=== PATIENT | male | born 1985 | race Caucasian/White ===

== ENCOUNTER 2020-02-29 14:53 | Emergency (ER) | payer OTHER ==
[2020-02-29 14:58] VITALS: RESP 18
[2020-02-29] MEDS ORDERED: DIPH,PERTUS(ACELL)TETVAC-LF 0.5 ML VIAL IM ONE (15:20)
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
[2020-02-29] MEDS ORDERED: MORPHINE SULFATE 4 MG/ML SYRINGE IVP STA (16:16)
[2020-02-29 16:30] VITALS: BP 147/78; PULSE 76; TEMP 98.3
[2020-02-29] MEDS ORDERED: ACET/COD 300 MG/30 MG STARTER PACK 6 TAB BTL PO STA (16:32)
== END 2020-02-29 16:54 | disposition home or self-care (01) ==
LOC: EC 14:53
DX: S02.2XXA Fracture of nasal bones, initial encounter for closed fracture (principal); S00.83XA Contusion of other part of head, initial encounter; T74.11XA Adult physical abuse, confirmed, initial encounter; Z88.1 Allergy status to other antibiotic agents; Z88.2 Allergy status to sulfonamides; Z88.5 Allergy status to narcotic agent; Y92.89 Other specified places as the place of occurrence of the external cause; Y07.410 Brother, perpetrator of maltreatment and neglect; Y04.0XXA Assault by unarmed brawl or fight, initial encounter; Y93.89 Activity, other specified; Z23 Encounter for immunization
CPT/HCPCS: 99285 ×2; 90471 ×2; 96374 ×2; 72125; 70486; 70450; 90715; J2270

== ENCOUNTER 2020-03-01 05:18 | Emergency (ER) | payer OTHER ==
[2020-03-01 05:28] VITALS: BP 161/112; PULSE 73; RESP 18; TEMP 98.1
[2020-03-01] MEDS ORDERED: IBUPROFEN 400 MG TAB PO STA (05:44)
--- NOTE | 2020-03-01 06:32 | XR ---
EXAM: XR Right Knee, 3 Views CLINICAL HISTORY: ITS.REASON XR Reason: injury TECHNIQUE: Three views of the right knee. COMPARISON: No relevant prior studies available. FINDINGS: Bones/joints: Unremarkable. No acute fracture. No dislocation. Soft tissues: Unremarkable. IMPRESSION: Normal right knee x-rays.
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
== END 2020-03-01 07:15 | disposition home or self-care (01) ==
LOC: EC 05:18
DX: S83.91XA Sprain of unspecified site of right knee, initial encounter (principal); I10 Essential (primary) hypertension; Z88.1 Allergy status to other antibiotic agents; Z88.2 Allergy status to sulfonamides; Z88.5 Allergy status to narcotic agent; Y04.0XXA Assault by unarmed brawl or fight, initial encounter
CPT/HCPCS: 99283

== ENCOUNTER → 2021-10-18 | Outpatient (CLI) | payer OTHER ==
[2021-10-18 13:36] VITALS: BP 153/106; PULSE 86; TEMP 98.2; BMI 43.4
--- NOTE | 2021-10-18 15:39 | P.HPBAR ---
Bariatric H&P - History & Physicial H&P Date: 10/18/21 History & Physicial: Visit/CC: initial clinic visit Patient initial contact: Initial weight: Initial weight in pounds: Height: 6 ft 1 in Initial BMI: Last weight: Current weight: 149.232 kg Current weight in pounds: 329.00 Current BMI: 43.4 Campbell body weight (based on NIH guidelines): 83.461 kg Excess body weight loss: The patient is a 35 year-old M who presents for Bariatric Assessment. Patient presents to the bariatric clinic today to discuss weight loss surgery. Patient is interested in sleeve gastrectomy. He states he has been heavy since high school. His main complaints regarding his morbid obesity are worsening back pain. States he has been told he has thoracic spine deterioration. Patient also has right knee pain. Patient denies DVT or dysphagia in the past. No tobacco use. He does use marijuana occasionally. Both his mother and sister had gastric bypass. He prefers sleeping gastrectomy. Patient requires a 7 month supervised weight loss. BMI 43. Review of Systems The patient denies any acute changes in vision or hearing, no dysphagia or odynophagia, no chest pain or shortness of breath, no dysuria or hematuria, no headache, no runny nose, no rectal bleeding or melena, no unexplained weight loss Past Medical History Past Medical History: Hypertension History of Any Multi-Drug Resistant Organisms: None Reported Past Surgical History: No Surgical Hx Reported, Tonsillectomy Past Anesthesia/Blood Transfusion Reactions: No Reported Reaction Past Psychological History: PTSD Smoking Status: Never smoker Past Alcohol Use History: None Reported Past Drug Use History: Marijuana Surgical - Exam Vital Signs Temp Pulse BP 98.2 F 86 153/106 10/18/21 13:31 10/18/21 13:31 10/18/21 13:31 Physical exam: General: Well-developed, well-nourished HEENT: Normocephalic, sclerae nonicteric Abdomen: Nontender, nondistended Extremities: No edema Neuro: Alert and oriented Bariatric Assessment & Plan (1) Morbid obesity with BMI of 40.0-44.9, adult Narrative/Plan: 35-year-old male with morbid obesity. Surgical weight loss options and their associated risks and benefits reviewed in detail. Patient remains interested in sleeve gastrectomy. The risks of bleeding, infection, stenosis, stricture, leak, abscess, fistula formation, peritonitis, poor weight loss, reflux, vomiting, conversion to an open procedure, aborting sleeve gastrectomy, NM, PE, DVT, and were discussed. Patient believes he has completed most of his preoperative weight loss requirements. We'll tentatively plan upper endoscopy in the near future. Status: Acute Bariatric Checklist Checklist: Plan: Checklist: EGD: 1. Hiatal hernia: 2. H. Pylori: HgbA1c: Vitamin D: Smoking: Primary care physician referral: [facility] Psychiatry clearance: Cardiology clearance: Sleep study: Diet journal: VTE risk score: VTE risk level: Rehab needs at discharge:
[2021-10-18 22:32] LABS: HCT 46.1 % (39.6-50.0); MCH 28.7 pg (27.0-32.0); MCHC 32.5 g/dL (32.0-37.0); MCV 88.1 fL (80.0-97.0); Mean Platelet Volume 8.6 fL (9.5-12.2); NRBC Per 100 WBC 0 /100 WBCS (0.0-0.0); Platelet Count 329 X 10*3/uL (140-440); RBC 5.23 X 10*6/uL (4.40-5.60); RDW 12.5 % (11.5-14.5); WBC 7.56 X 10*3/uL (4.50-10.00)
[2021-10-18 22:42] LABS: Albumin 4.6 g/dL (3.8-4.9); Albumin/Globulin Ratio 1.83 (1.60-3.17); Anion Gap 11.1 mmol/L (10.00-18.00); BUN/Creat Ratio 19.83 Ratio (12.00-20.00); Blood Urea Nitrogen 16.8 mg/dL (9.0-27.0); Calcium 9.5 mg/dL (8.7-10.3); Carbon Dioxide 25.5 mmol/L (20.0-27.5); Globulin 2.5 g/dL (1.6-3.3); Non-African American GFR(CKD) 113.9 (60.0-200.0); Potassium 4.3 mmol/L (3.5-5.5); Total Bilirubin 0.2 mg/dL (0.30-1.20); Total Protein 7.1 g/dL (6.2-8.2)
== END ==
LOC: BARWHC3 13:13
PROVIDERS: ATTEND Surgery
DX: E66.01 Morbid (severe) obesity due to excess calories (principal); I10 Essential (primary) hypertension; F43.10 Post-traumatic stress disorder, unspecified; Z71.51 Drug abuse counseling and surveillance of drug abuser; K90.89 Other intestinal malabsorption; E55.9 Vitamin D deficiency, unspecified; Z68.41 Body mass index [BMI] 40.0-44.9, adult
CPT/HCPCS: 84425; 80053; 82607; 82746; 83540; 85027; 82306; 83036; 93005; G0480; G0463; 80323; 99211

== ENCOUNTER → 2022-01-07 | Outpatient (CLI) | payer OTHER ==
[2022-01-07 12:05] VITALS: BP 163/107; PULSE 81; RESP 18; TEMP 99
--- NOTE | 2022-01-07 12:35 | P.PAINPG ---
PQRS Measure Charge Sheet Comment: HISTORY OF PRESENT ILLNESS: 36 yr old male as a referral from Dr. Wellington presents today w severe and chronic Thoracic pain secondary to spondylosis, DDD and facet arthropathy without myelopathy for evaluation. Pt states his pain level is currently at 7/10 in intensity but escalates as high as 10/10 w provocation, constant, stabbing/sore/burning pain . Pain is provoked w overexertion. Pain is alleviated w PT x 14 wks in November 2020, massage therapy x 1 10 yrs ago, heat, ice, medications (Tylenol, Naproxen), topicals, home stretching regimen and rest. PMH: Hypertension, Hx of PTSD, MDD, ADD/ADHD PSH: Tonsillectomy SH: Never smoker, No ETOH abuse, +Cannabis use. and lives w spouse. FH: Non contributory All: See list Meds: See list REVIEW OF ORGAN SYSTEMS: CONSTITUTIONAL: No fevers or chills. No recent weight loss. NEUROLOGICAL: + numbness and tingling along the distal extremities. No seizure disorders or headaches. MUSCULOSKELETAL: + pain PSYCHIATRIC: Denies current depression or suicidal thoughts. Physical Examinations : Constitutional : Cooperative , not in acute distress . Neurologic : Cranial nerve II to XII intact. No focal neurological deficits. Psychiatric : alert & oriented x 3. Matching mood & appropriate affect. Judgment & insight intact. Musculoskeletal : Cervical Spine Motor strength in the deltoid and biceps: Normal right side. Normal Left side Motor strength biceps and the wrist extensors: Normal right side . Normal left side Motor strength in the triceps muscle: Normal right side. Normal left side Deep tendon reflexes: Normal at the biceps. Normal at Brachioradialis. Normal at triceps Vertebral body tenderness to deep palpation over Cervical facet loading test: positive bilaterally Spurling test: positive bilaterally Neck distraction test: positive bilaterally Mary sign: positive bilaterally Thoracic spine Vertebral body TTP over T5, T6, T7, T8 w accompanying paraspinal TTP Lumbar spine Motor strength lower extremities ,thigh and legs 5/5 Right side , 5/5 Left side Deep tendon reflexes : Normal Knee Jerk. Normal Ankle Jerk Vertebral body tenderness over Lumbar facet Loading Test: positive Right / positive Left Range of motion of the lumbar spine Flexion 30 degrees, extension 10 degrees Straight Leg Raise test: Left/ Right positive at degree Ezra test: positive right / positive left. Severe tenderness over the Sacroiliac joint on the Right / Left sides Gaenslen test: positive bilaterally Seated flexion test: positive bilaterally. Sacral spine : Severe tenderness over the Sacroiliac joint: right side / left side Range of motion: Flexion of the lumbar spine <60 degrees Range of motion: Extension of the lumbar spine <20 degrees Gaenslen's Test positive Avel's Test positive Ezra test: positive right side / left side Thigh Thrust Test Sacral Thrust Test Imaging: MRI without contrast of the Thoracic Spine from 12/24/21 reviewed Assessment/ Plan : Thoracic DDD, Thoracic Spondylosis Recommendation of DULCE T6-T7. May need a series of injections, up to 3 within a 6 mo period, for optimal pain relief. Risks, benefits of procedure discussed and patient verbalized understanding. Denies aspirin or anti- coagulant use or medical history of diabetes. Protocol for discontinuation/ continuation of medications brown procedure discussed. All questions answered. I have spent greater than 30 minutes on patient care today. Dr Aguilar was available by phone for the evaluation of this patient. The time was used to review the medical records including relevant urine studies and Prescription history (MAPs), review of the available imaging, evaluation and examination of t he patient, coordination of care with the medical staff and if applicable referring physicians, as well as creation of the medical record Home Medications: Ambulatory Orders Acetaminophen [Tylenol Extra Strength] 1,500 mg PO TID 10/18/21 Naproxen 500 mg PO BID 10/18/21 Vortioxetine Hydrobromide [Trintellix] 20 mg PO DAILY 10/18/21 amLODIPine 30 mg PO BID 10/18/21 buPROPion HCL [buPROPion HCL ER] 200 mg PO QID 10/18/21 diazePAM [Valium] 15 mg PO DIRECTED 10/18/21 Controlled Substance Measures - Controlled Substance Measures Is patient prescribed a controlled substance at discharge?: No
== END ==
LOC: PNWHC3 07:39
PROVIDERS: ATTEND Specialist
DX: M47.814 Spondylosis without myelopathy or radiculopathy, thoracic region (principal); M51.34 Other intervertebral disc degeneration, thoracic region; I10 Essential (primary) hypertension; F43.10 Post-traumatic stress disorder, unspecified; F32.9 Major depressive disorder, single episode, unspecified; F90.9 Attention-deficit hyperactivity disorder, unspecified type; Z88.1 Allergy status to other antibiotic agents; Z88.2 Allergy status to sulfonamides; Z88.5 Allergy status to narcotic agent
CPT/HCPCS: 99211

== ENCOUNTER 2022-01-29 11:39 | Day surgery (SDC) | payer OTHER ==
[~2022-01-29 11:39] MED LIST: LACTATED RINGERS 1,000 ML IV SCH
[2022-01-29 12:17] VITALS: RESP 18; TEMP 97.8
[2022-01-29] MEDS ORDERED: MIDAZOLAM 2 MG/2 ML VIAL ONE (13:29)
[2022-01-29] MEDS ORDERED: IOPAMIDOL M200 10 ML VIAL ONE (13:29)
[2022-01-29] MEDS ORDERED: fentaNYL (PF) 50 MCG/ML 2 ML AMP ONE (13:29)
[2022-01-29] MEDS ORDERED: methylPREDNISolone ACETATE 80 MG/ML 1 ML VIAL ONE (13:29)
--- NOTE | 2022-01-29 13:51 | P.PCN ---
Date of Procedure: 01/29/22 Description of Procedure: Pre- and Post-operative Diagnosis: Thoracic spondylosis without myelopathy Procedure: T6-T7 Inter-laminar Thoracic epidural steroid injection under biplanar fluoroscopy Surgeon: Karla Solano Anesthesia: Local: 1% Lidocaine, IV sedation : Versed 2 mg and fentanyl 100 g. Sedation supervision start time: 1331 Sedation supervision eneded time : 1346 Complications: None. Estimated blood loss: None Specimens removed: None Fluoroscopic image: Saved to patient electronic medical records. Indications for Procedure: The patient has been suffering from thoracic back pain. The patient had inadequate pain control with pharmacologic regimen. Patient had a previous thoracic epidural steroid injection which helped him good pain relief. So came here for inter-laminar thoracic epidural steroid injection was scheduled for the patient. Procedure and Findings: The patient was seen and examined in the holding area. The written informed consent was obtained after explaining the risks, benefits, and alternatives of the procedure to the patient. The patient was brought to the procedure room and was placed in the prone position on the operating table. A pillow was placed under the chest. Standard anesthesia monitoring was done through out the procedure. The skin preparation was done with ChloraPrep 1 and draping was done in usual sterile fashion. Sterile technique was observed throughout the procedure. Under fluoroscopic guidance, the Thoracic T6-T7 inter-laminar space was identified. 4ml of 1% Lidocaine was injected with a 25 gauge needle to achieve adequate local anesthesia of the skin and subcutaneous tissue. A 20 gauge 3.5 inch Tuohy type epidural needle was placed and advanced gradually up to the epidural space using loss of resistance technique and fluoroscopic guidance. No paresthesia was noted. A negative aspiration was confirmed and then 2 ml Isovue was injected. A good dye spread was seen in the epidural space and it was negative for any intrathecal, intraneural or intravascular spread. A total of 10 ml solution containing 80mg of Depo-Medrol and 9 ml of PF -Normal Saline was injected slowly with intermittent aspiration. The needle was removed intact, area was cleaned and bandage was applied. Disposition : The patient tolerated the procedure very well. The patient was transferred to the recovery room and remained stable until discharged home. The patient was given detailed discharge instructions for infection, bleeding, and increased pain at the injection site, and was advised to seek immediate medical attention should significant side effects develop. The patient scheduled with the pain clinic for follow-up visit in 4 weeks.
[2022-01-29 13:56] VITALS: BP 171/98; PULSE 60
[2022-01-29] MEDS ORDERED: IV FLUID CONTINUATION 700 ML IV ONE (14:00)
--- NOTE | 2022-01-29 14:17 | FL ---
Intraoperative/procedural fluoroscopic services were provided. Total fluoroscopy time is 20 seconds w ith a total of 2 submitted images to PACS. Please see the operative/procedural note for further detai ls.
== END 2022-01-29 14:20 | disposition home or self-care (01) ==
LOC: ORPAIN 11:39
PROVIDERS: ATTEND Specialist
DX: M51.34 Other intervertebral disc degeneration, thoracic region (principal); M47.814 Spondylosis without myelopathy or radiculopathy, thoracic region; F43.11 Post-traumatic stress disorder, acute; M19.90 Unspecified osteoarthritis, unspecified site; F41.9 Anxiety disorder, unspecified; Z68.41 Body mass index [BMI] 40.0-44.9, adult; Z88.2 Allergy status to sulfonamides; Z88.1 Allergy status to other antibiotic agents; Z88.5 Allergy status to narcotic agent
CPT/HCPCS: 62321; J2250; J1040; J3010; Q9966

== ENCOUNTER → 2022-02-27 | Outpatient (CLI) | payer OTHER ==
[2022-02-27 08:38] VITALS: BP 145/92; PULSE 87; RESP 16
--- NOTE | 2022-02-27 14:43 | P.PAINPG ---
PQRS Measure Charge Sheet Comment: A 36 yr old male with a history of severe and chronic low back pain secondary to lumbar degenerative disc diseases and lumbar spondylosis with facet arthropathy without myelopathy presents today for evaluation s/p T6-T 7 interlaminar DULCE. Pt states he experienced 80% pain relief x 2 days s/p procedure. Pain level is currently at 7/10 in intensity, constant, localized in the mid spine, dull/ achy/ sharp/ shooting towards L sholder blade. Pain is provoked by . Pain is alleviated with PT in 2014 without relief, home stretches daily, medications (Tylenol, Motrin), ice, topicals, repositioning and rest. Pt also has R knee pain, 10/10 in intensity w standing/ walking, dull & achy, without radiation. Pt admits to R knee PT x 6 mo in 2020. Interventional pain procedures completed include TESI T6-T7 Patient is currently on Tylenol OTC, Motrin OTC Patient denies any side effects of the medication(s), denies excessive drowsiness or sleepiness, denies suicidal ideation and reports that the current pain medication is helping to control the pain and improve activities of daily living. Patient denies any motor or sensory deficits. Patient denies any fever or night sweats, denies any change in the bowel movements or urination. Physical Examination: -Constitutional: Cooperative. Not in acute distress . - Neurologic: Cranial nerve II to XII intact. No focal neurological deficits. - Psychatric: Alert & oriented x 3. Matching mood & appropriate affect. Judgment and insight intact. - Musculoskeletal: Cervical spine: Muscle bulk/ tone/ strength in the bilateral upper extremities normal Vertebral body tenderness to palpation over Spurling test positive Distraction test positive Facet loading test positive Thoracic spine Muscle bulk / tone/ strength in the bilateral paraspinal muscles normal Vertebral body tender to palpation over L paraspinal TTP over T6-T10 Facet loading test positive Lumbar spine: Motor bulk/ tone/ strength lower extremities , thigh and legs : 5/5 Deep tendon reflexes : Normal Knee Jerk. Normal Ankle Jerk . Vertebral body tenderness to palpation over Lumbar Facet Loading Test positive Straight Leg Raise: positive at 30 degrees right side/ left side Gaenslen's Test positive Sacral spine : Severe tenderness over the Sacroiliac joint: right side / left side Range of motion: Flexion of the lumbar spine <60 degrees Range of motion: Extension of the lumbar spine <20 degrees Gaenslen's Test positive Avel's Test positive Ezra test: positive right side / left side Thigh Thrust Test Sacral Thrust Test Assessment and plan: Chronic low back pain secondary to lumbar degenerative disc disease , lumbar spondylosis with facet arthropathy without myelopathy Recommendation of L TPIs of T4-T12. May need a series, up to every 2-3 mo , for optimal pain relief. Risks, benefits of procedure discussed and pt verbalized understanding. Admits to anticoagulant use or medical history of diabetes. Protocol for discontinuation/ continuation of medications brown procedure discussed. All patient questions answered Recommendation of MRI without contrast of the R knee re: M25.561 I have spent less than 30 minutes on patient care today. Dr Aguilar was available by phone for the evaluation of this patient. The time was used to review the medical records including relevant urine studies and Prescription history (MAPs), review of the available imaging, evaluation and examination of the patient, coordination of care with the medical staff and if applicable referring physicians, as well as creation of the medical record - Pain Location Back Non-Pharmacological Interventions: Home Exercise, Inactivity, Physical Therapy, Stretching Pharmacological Interventions: Epidural, PRN Medication Right Knee Non-Pharmacological Interventions: Home Exercise, Ice, Inactivity, Physical Therapy, Position/Reposition, Stretching Pharmacological Interventions: PRN Medication, Topical Medication PQRS Narrative: Hx Alcohol Use (MH) Yes: once weekly Home Medications: Ambulatory Orders Acetaminophen [Tylenol Extra Strength] 1,500 mg PO TID 10/18/21 Naproxen 500 mg PO BID 10/18/21 Vortioxetine Hydrobromide [Trintellix] 20 mg PO DAILY 10/18/21 buPROPion HCL [buPROPion HCL ER] 200 mg PO QID 10/18/21 diazePAM [Valium] 15 mg PO DIRECTED 10/18/21 Dextroamphetamine/Amphetamine [Adderall] 30 mg PO BID 01/29/22 Controlled Substance Measures - Controlled Substance Measures Is patient prescribed a controlled substance at discharge?: No
== END | disposition home or self-care (01) ==
LOC: PNWHC3 08:01
PROVIDERS: ATTEND Specialist
DX: M51.36 Other intervertebral disc degeneration, lumbar region (principal); M47.816 Spondylosis without myelopathy or radiculopathy, lumbar region; G89.29 Other chronic pain; F10.90 Alcohol use, unspecified, uncomplicated; Z88.2 Allergy status to sulfonamides; Z88.8 Allergy status to other drugs, medicaments and biological substances; Z88.5 Allergy status to narcotic agent; M25.561 Pain in right knee
CPT/HCPCS: 99211

== ENCOUNTER → 2022-02-28 | Outpatient (CLI) | payer OTHER ==
--- NOTE | 2022-02-28 12:57 | MR ---
EXAMINATION TYPE: MR knee RT wo con DATE OF EXAM: 02/28/2022 COMPARISON: Plain film 03/01/2020 HISTORY: Right knee pain, swelling. TECHNIQUE: Multiplanar, multisequence imaging of the right knee is performed without IV contrast. FINDINGS: MEDIAL MENISCUS: Posterior horn the medial meniscus shows abnormal increased signal thought to extend to the undersurface with some diffuse abnormal increased signal suggesting some degenerative change, sagittal image 10 of series 401, coronal image 25 series 701. LATERAL MENISCUS: Anterior and posterior horns are intact without tear.Posterior root anchor of the l ateral meniscus is not seen definitively. CRUCIATE LIGAMENTS: The anterior and posterior cruciate ligaments are intact and unremarkable. COLLATERAL LIGAMENTS: The medial collateral ligament and lateral collateral ligament complex are inta ct and unremarkable. EXTENSOR MECHANISM: Visualized quadriceps and patellar tendons are intact. EFFUSION: Suprapatellar joint effusion is present POPLITEAL CYST: Sizable semimembranosus gastrocnemius cyst is present measuring approximately 2.5 cm in transverse by 3.6 cm in AP by 6.4 cm in cephalad to caudal dimension TRICOMPARTMENT SPACES: Maintained CARTILAGE: Grade 2 to grade III chondromalacia suspected along the lateral femoral condyle, medial fe moral condyle, posterior patella BONE MARROW SIGNAL: Some subchondral increased signal present on T2-weighted sequences at the level o f the tibial spine may represent some reactive marrow signal change or geode formation OTHER: There are some changes of subcutaneous edema. IMPRESSION: Joint effusion, Ewing's cyst, osteoarthritis, findings suspicious for possible degenerative tear the posterior horn the medial meniscus, additional findings above.
== END | disposition home or self-care (01) ==
LOC: RADMRIMAIN 09:28
PROVIDERS: ATTEND Specialist
DX: M17.11 Unilateral primary osteoarthritis, right knee (principal); M71.21 Synovial cyst of popliteal space [Baker], right knee

== ENCOUNTER 2022-03-12 13:16 | Day surgery (SDC) | payer OTHER ==
[2022-03-12] MEDS ORDERED: LACTATED RINGERS 1,000 ML IV SCH (13:30)
[2022-03-12] MEDS ORDERED: LIDOCAINE 1% (10MG/ML) FOR IV START INTRADERMA PRN (13:30)
[2022-03-12 13:42] VITALS: TEMP 98.3
[2022-03-12] MEDS ORDERED: fentaNYL (PF) 50 MCG/ML 2 ML AMP ONE (13:54)
[2022-03-12] MEDS ORDERED: methylPREDNISolone ACETATE 40 MG/ML 1 ML VIAL ONE (13:54)
[2022-03-12] MEDS ORDERED: MIDAZOLAM 2 MG/2 ML VIAL ONE (13:54)
[2022-03-12] MEDS ORDERED: ROPIVACAINE 5 MG/ML 20 ML AMPULE ONE (13:54)
[2022-03-12] MEDS ORDERED: IV FLUID CONTINUATION 1,000 ML IV ONE (14:11)
--- NOTE | 2022-03-12 14:11 | P.PCN ---
Date of Procedure: 03/12/22 Procedure(s) Performed: Procedure= trigger point injection left side thoracic paraspinal muscles from T4 to T11 (total of 6 trigger point injected ) Preoperative diagnosis= 1-myofascial pain syndrome thoracic paraspinal muscles Postoperative diagnosis=Same as preop Diagnosis . Complication = none Condition= stable Anesthesia= moderate sedation with intravenous Versed 2 mg , and fentanyl 100 micrograms . Sedation start time: 1357 Sedation end time : 1404 Indication for the procedure= patient complaining of mid and upper back pain , examination was positive for multiple trigger point identified in the left side thoracic paraspinal muscles Description of the procedure= procedure risk and benefits discussed with the patient, including but not limited, risk of infection and bleeding, and ALLERGIC reaction to the medication and not complete pain relief and patient agreed with the preceding patient taken to the operating room, placed in sitting position or standard monitors applied to the patient then after induction of anesthesia back prepped with chlorhexidine 3 times , total of 6 trigger point identified and injected in the left side thoracic paraspinal muscles from T4 to T11, using 25- gauge needle in each of the trigger point injected with the 2 mL of the mixture of ropivacaine 0.5% with 40 mg of Depo-Medrol, 2 mL of the mixture injected at each trigger point after negative aspiration patient tolerated the procedure well without any complication and injection done after negative aspiration and there was no paresthesia during the injection, tolerated the procedure well without any complications
[2022-03-12 14:29] VITALS: BP 140/85; PULSE 85; RESP 16
== END 2022-03-12 14:42 | disposition home or self-care (01) ==
LOC: ORPAIN 13:16
PROVIDERS: ATTEND Specialist
DX: M79.18 Myalgia, other site (principal); Z88.1 Allergy status to other antibiotic agents; Z88.2 Allergy status to sulfonamides
CPT/HCPCS: 20553; J2250; J1030; J3010; J2795

== ENCOUNTER → 2022-04-01 | Outpatient (CLI) | payer OTHER ==
[2022-04-01 08:14] VITALS: BP 146/98; PULSE 97; RESP 18; TEMP 98.2
--- NOTE | 2022-04-01 14:45 | P.PAINPG ---
PQRS Measure Charge Sheet Comment: A 36 yr old male with a history of severe and chronic mid back pain secondary to thoracic DDD and spondylosis with facet arthropathy without myelopathy presents today for evaluation for thoracic TPIs. Pt states eh experienced 90% pain relief x 1 wk s.p porcedure. Pain level is currently at 9/10 in intensity, constant, localized in the BL thoracic spine beneath the scapulae, pressure - like w shooting towards the flanks. Pain is provoked by twisting. Pain is alleviated with PT in 2020, heat, medications, topicals, repositioning and rest. Interventional pain procedures completed include L TPIs T4-T12 x1 Patient is currently on Tylenol Arthritis Patient denies any side effects of the medication(s), denies excessive drowsiness or sleepiness, denies suicidal ideation and reports that the current pain medication is helping to control the pain and improve activities of daily living. Patient denies any motor or sensory deficits. Patient denies any fever or night sweats, denies any change in the bowel movements or urination. Physical Examination: -Constitutional: Cooperative. Not in acute distress . - Neurologic: Cranial nerve II to XII intact. No focal neurological deficits. - Psychatric: Alert & oriented x 3. Matching mood & appropriate affect. Judgment and insight intact. - Musculoskeletal: Cervical spine: Muscle bulk/ tone/ strength in the bilateral upper extremities normal Vertebral body tenderness to palpation over Spurling test positive Distraction test positive Facet loading test positive Thoracic spine Muscle bulk / tone/ strength in the bilateral paraspinal muscles normal Vertebral body tender to palpation over Facet loading test positive over L T6-T9 Lumbar spine: Motor bulk/ tone/ strength lower extremities , thigh and legs : 5/5 Deep tendon reflexes : Normal Knee Jerk. Normal Ankle Jerk . Vertebral body tenderness to palpation over Lumbar Facet Loading Test positive Straight Leg Raise: positive at 30 degrees right side/ left side Gaenslen's Test positive Sacral spine : Severe tenderness over the Sacroiliac joint: right side / left side Range of motion: Flexion of the lumbar spine <60 degrees Range of motion: Extension of the lumbar spine <20 degrees Gaenslen's Test positive Ezra test: positive right side / left side Thigh Thrust Test Sacral Thrust Test Assessment and plan: Chronic mid back pain secondary to thoracic degenerative disc disease, spondylosis with facet arthropathy without myelopathy Recommendation of IPG placement. Video reviewed by pt. Script for behavioral health evaluation provided. May return to this clinic within 4 wks for a re evaluation. Risks, benefits of procedure discussed and pt verbalized understanding. Denies anticoagulant use or medical history of diabetes. All patient questions answered I have spent less than 30 minutes on patient care today. Dr Aguilar was available by phone for the evaluation of this patient. The time was used to review the medical records including relevant urine studies and Prescription history (MAPs), review of the available imaging, evaluation and examination of the patient, coordination of care with the medical staff and if applicable referring physicians, as well as creation of the medical record PQRS Narrative: Hx Alcohol Use (MH) Yes: once weekly Home Medications: Ambulatory Orders Acetaminophen [Tylenol Extra Strength] 1,500 mg PO TID 10/18/21 Naproxen 500 mg PO BID 10/18/21 Vortioxetine Hydrobromide [Trintellix] 20 mg PO DAILY 10/18/21 buPROPion HCL [buPROPion HCL ER] 200 mg PO QID 10/18/21 diazePAM [Valium] 15 mg PO DIRECTED 10/18/21 Dextroamphetamine/Amphetamine [Adderall] 30 mg PO BID 01/29/22 Controlled Substance Measures - Controlled Substance Measures Is patient prescribed a controlled substance at discharge?: No
== END ==
LOC: PNWHC3 07:51
PROVIDERS: ATTEND Specialist
DX: M47.814 Spondylosis without myelopathy or radiculopathy, thoracic region (principal); M51.34 Other intervertebral disc degeneration, thoracic region; G89.29 Other chronic pain; Z88.1 Allergy status to other antibiotic agents; Z88.2 Allergy status to sulfonamides; Z88.5 Allergy status to narcotic agent
CPT/HCPCS: 99211

== ENCOUNTER → 2022-06-24 | Outpatient (CLI) | payer OTHER ==
[2022-06-24 10:52] VITALS: BMI 42.7
== END ==
LOC: BARWHC3 08:38
PROVIDERS: ATTEND Surgery Plastic and Reconstructive Surgery
DX: E66.01 Morbid (severe) obesity due to excess calories (principal); Z53.9 Procedure and treatment not carried out, unspecified reason
CPT/HCPCS: 97804

== ENCOUNTER → 2022-08-14 | Outpatient (CLI) | payer OTHER ==
--- NOTE | 2022-08-14 13:06 | P.PN ---
Subjective Progress Note Date: 08/14/22 This is a 36-year-old morbidly obese patient with history of mid back pain with radiation to the left shoulder. This pain started a few years ago .the pain gets worse by any activity especially repetitive movements and twisting of the torso. The patient failed to respond to conservative management including physical therapy and interventional pain procedures. The patient was deemed a candidate for a trial of spinal cord stimulation previous visit to our clinic. He was referred for psychiatric evaluation and was cleared for this procedure. Patient denies new-onset weakness, bowel/bladder incontinence, or any other signs or symptoms of cauda equina syndrome. There are no signs of acute intoxication, and no indications of medication diversion or overuse. In addition to above, 13-point review of systems is also negative for chest pain, shortness of breath, changes in vision, changes in hearing, new onset weakness, abdominal pain, diarrhea, extreme fatigue, malaise, fever, skin changes, homicidal or suicidal ideation, or bowel or bladder incontinence. Vital Signs: Reviewed in EMR Gen: AAOx3, NAD HEENT: PERRLA,hearing grossly normal Pulm: resp unlabored Neck: supple, trachea midline Neuro exam of the lower extremities: Straight leg raising test: Avel's test: Range of motion of the lumbar spine: Facet loading test: Tenderness in the paravertebral musculature: Positive tenderness in the mid and upper thoracic area mostly on the left side Neuro: CN II-XII grossly intact, Imaging: Reviewed in EMR/chart: Thoracic spine MRI dated 12/24/2021: Mild multilevel degenerative disc disease worse at C6 7 level with moderate ventral thecal sac effacement, diffuse facet arthropathy from T5 6 level inferiorly, mild ventral thecal sac narrowing at T6 7 due to broad-based disc osteophyte complex Assessment: Thoracic spondylosis without myelopathy Plan: 1. Explanation: When patients on opioids, opioid and psychological risk scores were reviewed. Diagnoses, prognoses, and multiple treatment options including but not limited to physical therapy, interventional therapies, adjuvant medical therapies, narcotic medication therapies, and surgery were discussed with the patient and all questions were answered to the patient's satisfaction. 2. Opioid agreement:When patients are prescribed opoids through our clinic, opioid agreement is signed with the patient and the patient is warned not to use opioids while driving or before driving and not to combine opioids with benzodiazepines or alcohol. 3. Counseling: When patient is smoking or obese, the patient was counseled extensively on SMOKING CESSATION, BODY MASS INDEX, EXERCISE. Specifically, the patient was instructed regarding the importance of smoking cessation, obesity, and exercise in the context of both chronic pain and overall health. 4. Procedures: The patient will be scheduled for a trial of spinal cord stimulation. He understands that given his axial only pain the results of the spinal cord stimulation may not be as good as the results for extremity pain. The patient was advised to hold his Naprosyn for a few days before the procedure. 5. Consultations: None 6. Investigations: None 7. Medications: None prescribed 8. Disposition: Proceed with the above-mentioned procedure as soon as possible 9. Maps were reviewed and were appropriate. PQRS measures: 1-Patient's medications are documented in the chart. 2-Tobacco use is negative, counseling given 3-Patient has had a pneumococcal vaccine. 4-Advanced care planning discussed, patient unable to give 5-Opioid contract signed with the patient. 6-Pain positive, follow-up visit or procedure scheduled 7-Patient's blood pressure measured and documented . The patient will follow up with his primary care physician. 8-Patient's weight was measured. Patient instructed to follow up with PCP. 9-Patient WAS NOT identified as an unhealthy alcohol user.
[2022-08-14 13:15] VITALS: BP 162/95; PULSE 71; RESP 18; TEMP 98.5
== END ==
LOC: PNWHC3 12:26
PROVIDERS: ATTEND Anesthesiology
DX: M47.814 Spondylosis without myelopathy or radiculopathy, thoracic region (principal); Z88.1 Allergy status to other antibiotic agents; Z88.2 Allergy status to sulfonamides; Z88.8 Allergy status to other drugs, medicaments and biological substances; Z88.5 Allergy status to narcotic agent
CPT/HCPCS: 99211

== ENCOUNTER 2022-09-27 11:49 | Day surgery (SDC) | payer OTHER ==
[2022-09-24 16:07] VITALS: BMI 41.5
[~2022-09-27 11:49] MED LIST changes: +LIDOCAINE 1% (10MG/ML) FOR IV START INTRADERMA PRN
[2022-09-27 12:22] VITALS: TEMP 97.9
[2022-09-27] MEDS ORDERED: ROPIVACAINE 5 MG/ML 20 ML AMPULE ONE (12:40)
[2022-09-27] MEDS ORDERED: fentaNYL (PF) 50 MCG/ML 2 ML AMP ONE (12:40)
[2022-09-27] MEDS ORDERED: KETAMINE 10 MG/ML 20 ML VIAL ONE (12:40)
[2022-09-27] MEDS ORDERED: MIDAZOLAM 2 MG/2 ML VIAL ONE (12:40)
[2022-09-27] MEDS ORDERED: PROPOFOL 10 MG/ML 20 ML VIAL IV ONE (12:40)
[2022-09-27] MEDS ORDERED: IV FLUID CONTINUATION 1,000 ML IV ONE (14:24)
--- NOTE | 2022-09-27 14:34 | FL ---
EXAMINATION TYPE: FL guided pain mgmt statistic DATE OF EXAM: 09/27/2022 CLINICAL HISTORY: Mid back pain TECHNIQUE: Fluoroscopy. COMPARISON: None. FINDINGS: Fluoroscopic guidance was provided during implant pain stimulator procedure performed by Tj Aguilar. A total of 273.6 seconds of fluoroscopic time was utilized during the procedure and 3 s pot images was acquired. Total dose area product (DAP) in uGy*m?, mGy*cm? (or similar: 1.24. Images show advancement of stimulator into the thoracic spine. IMPRESSION: As Above.
[2022-09-27 15:19] VITALS: BP 131/69; PULSE 66; RESP 18
--- NOTE | 2022-09-27 17:13 | P.PCN ---
Date of Procedure: 09/27/22 Procedure(s) Performed: PROCEDURES: 1- spinal cord stimulator trial under fluoroscopic guidance X2 lead (Fluoroscopy images stored on file in radiology department ) (CPT code= 09762 ) X2 2- complex programing of the spinal cord stimulator. PREOPERATIVE DIAGNOSIS: 1-Thoracic spondylosis with Thoracic facet arthropathy without myelopathy. 2-Thoracic degenerative disc disease. 3-morbid obesity POSTOPERATIVE DIAGNOSIS: 1-same as preoperative diagnoses ANESTHESIA: Monitored anesthesia care as per anesthesia department BLOOD LOSS: Minimal. COMPLICATIONS: None. PROCEDURE INDICATIONS: The patient with a history of severe intractable Upper and mid back pain who failed more conservative treatment measures. Patient had multiple pain interventions procedure and she got short-term benefit from it, patient was a candidate for spinal cord stimulator and she had the psychological testing done and showed that there is no contraindication for the spinal cord stimulator, patient is not interested in having any lumbar surgery PROCEDURE DESCRIPTION: The patient was seen and identified in the preoperative area. Risks, benefits, complications, and alternatives were discussed with the patient. The patient agreed to proceed with the procedure and signed the consent. IV was started.P atient was taken to the operating room and time out was performed.. The Thoracic and lumbar areas were prepped with Druaprep x2 and draped in the usual sterile fashion. Using sterile gowns and gloves, and after covering the fluoroscopic camera with a sterile drape, the procedure was proceeded on with. The fluoroscopic camera was placed in the AP position, and the T12-L1 interlaminar space was identified and localized in the left paramedian trajectory with 0.5% ropivacaine. Under fluoroscopic guidance, a 14 gauge Tuohy epidural needle from the [employer] spinal cord stimulator kit was guided into the interlaminar space. Then using the right oblique fluoroscopy, anterior-posterior fluoroscopy, and [id number] technique, the epidural space was accessed. The first lead (8 contacts leads from [employer] ) was passed and noted to be in the dorsal portion of the epidural space in the lateral view. Then using anterior-posterior view, the first lead was passed up to the top of T4 vertebra. Subsequently, a second 14 gauge Tuohy epidural needle was inserted just posterior to the first needle and was advanced toward the epidural space in a parallel direction to the first needle. Then using lateral fluoroscopy, anterior-posterior fluoroscopy, and [id number]-[id number] technique, the epidural space was accessed by the second needle into the same interlaminar space as the first needle. Then a second similar lead was passed and noted to be in the dorsal portion of the epidural space in the lateral view. Then using anterior- posterior view, the second lead was passed up to the top of T 6 vertebra, and was left in a parallel position to the first lead. Subsequently, the leads were tested and they gave good stimulation on the upper and mid back area and the lower , then after that the needle was removed and both leads secured using 2-0 silk, and then the dressing applied during the procedure ,we performed complex programing of the spinal cord stimulator ,we changed pulse width ,amplitude and the frequencey of the stimulation and we got good coverage for the painful area ,the parasthesia overlaped the painfull area ,patients was satesfied withe the stimulation ,we got more than 80 % decrease in the pain level COMPLICATIONS: No acute complications. COMMENTS: Each lead used had 8 contacts with a total of 16 contacts used. DISPOSITION / PLANS: The patient was placed in a supine position and transferred to the recovery area in a stable condition for observation. There was no evidence of lower extremity motor or sensory deficit after the procedure. Patient was discharged from the recovery room after meeting discharge criteria. Home discharge instructions were given to the patient by the staff. The patient was reexamined prior to discharge. Patient will follow up in the pain clinic next week for reevaluation and discussion about the results and possibility of moving forward with a permanent implant
== END 2022-09-27 15:57 | disposition home or self-care (01) ==
LOC: ORPAIN 11:49
PROVIDERS: ATTEND Specialist
DX: M51.34 Other intervertebral disc degeneration, thoracic region (principal); M47.814 Spondylosis without myelopathy or radiculopathy, thoracic region; E66.01 Morbid (severe) obesity due to excess calories; F12.90 Cannabis use, unspecified, uncomplicated; K21.9 Gastro-esophageal reflux disease without esophagitis; F43.10 Post-traumatic stress disorder, unspecified; I10 Essential (primary) hypertension; Z68.41 Body mass index [BMI] 40.0-44.9, adult; Z88.1 Allergy status to other antibiotic agents; Z88.8 Allergy status to other drugs, medicaments and biological substances; Z79.899 Other long term (current) drug therapy
CPT/HCPCS: 63650; J2250; J3010; J2704; J2795; C1897; C1883

== ENCOUNTER → 2022-10-04 | Outpatient (CLI) | payer OTHER ==
[2022-10-04 10:09] VITALS: BP 135/95; PULSE 70; RESP 18; TEMP 97.6
--- NOTE | 2022-10-04 11:12 | P.PN ---
Progress Note - Text Progress Note Date: 10/04/22 This is follow-up visit for this 36 years old male with a history of severe upper and mid back pain, secondary to thoracic degenerative disc disease, thoracic spondylosis with thoracic facet arthropathy, last week we have done spinal cord stimulator trial, and I placed a percutaneous spinal cord stimulator lead tries 2, and patient here for evaluation about the results of the trial and for the leads removal , patient reported that he got more than 75% improvement of his pain level, and his activity improved significantly, he was able to ambulate freely and he was able to do a lot of activity at home without any pain, he is very satisfied with the result of the trial and he want to proceed with the permanent implant,he reportes his function improved and his pain level improved significantly, he denies any motor or sensory deficit, and today under strict sterile technique was able to remove the percutaneous lead x2 under strict sterile technique, leads removed intact, and the dressing applied and patient will follow up in the pain clinic in a few weeks will schedule patient for the permanent implant of the spinal cord stimulator leads 2 and spinal cord stimulator generator implant
== END ==
LOC: PNWHC3 09:27
PROVIDERS: ATTEND Specialist
DX: M47.814 Spondylosis without myelopathy or radiculopathy, thoracic region (principal); M51.34 Other intervertebral disc degeneration, thoracic region; Z88.1 Allergy status to other antibiotic agents; Z88.2 Allergy status to sulfonamides; Z88.5 Allergy status to narcotic agent
CPT/HCPCS: 99211

== ENCOUNTER 2022-11-15 10:15 | Day surgery (SDC) | payer OTHER ==
[~2022-11-15 10:15] MED LIST changes: -LACTATED RINGERS 1,000 ML IV SCH; -LIDOCAINE 1% (10MG/ML) FOR IV START INTRADERMA PRN; +Pre Op ABX Message 1 EACH MISC MISCELLANE ONE
[2022-11-15] MEDS ORDERED: DEXAMETHASONE SOD PHOSPHATE 4 MG/ML 1 ML VIAL IV ONE (10:52)
[2022-11-15] MEDS ORDERED: ONDANSETRON 4 MG/2 ML VIAL IVP ONE (10:52)
[2022-11-15] MEDS ORDERED: LACTATED RINGERS 1,000 ML IV SCH (10:52)
[2022-11-15] MEDS ORDERED: HYDROmorphone 0.5 MG/0.5 ML SYRINGE IVP PRN (10:52)
[2022-11-15] MEDS ORDERED: LIDOCAINE 1% (10MG/ML) FOR IV START INTRADERMA PRN (10:52)
[2022-11-15 11:12] LABS: Glucose,Whole Blood 95 mg/dL (70-110)
[2022-11-15 11:13] VITALS: TEMP 97.4
[2022-11-15] MEDS ORDERED: fentaNYL (PF) 50 MCG/ML 2 ML AMP ONE (12:32)
[2022-11-15] MEDS ORDERED: hydrALAZINE HCL 20 MG/ML 1 ML VIAL ONE (12:32)
[2022-11-15] MEDS ORDERED: ceFAZolin 1,000 MG VIAL ONE (12:32)
[2022-11-15] MEDS ORDERED: PROPOFOL 10 MG/ML 20 ML VIAL IV ONE (12:32)
[2022-11-15] MEDS ORDERED: SODIUM CHLORIDE 0.9% 100 ML BAG ONE (12:32)
[2022-11-15] MEDS ORDERED: KETAMINE 10 MG/ML 20 ML VIAL ONE (12:32)
[2022-11-15] MEDS ORDERED: MIDAZOLAM 2 MG/2 ML VIAL ONE (12:32)
[2022-11-15] MEDS ORDERED: .MORPHINE SULFATE (INJ) 10 MG/ML SYRINGE ONE (12:32)
[2022-11-15] MEDS ORDERED: SODIUM CHLORIDE 0.9% 50 ML with ceFAZolin 3,000 MG IV ONE ×2 (12:37)
[2022-11-15] MEDS ORDERED: SODIUM CHLORIDE 0.9% 50 ML with ceFAZolin 2,000 MG IV ONE ×2 (12:37)
[2022-11-15] MEDS ORDERED: LIDOCAINE 0.5%-EPI 1:200,000 50 ML VIAL SQ ONE ×2 (12:56)
[2022-11-15] MEDS ORDERED: LACTATED RINGERS 1,000 ML IV ONE (14:49)
--- NOTE | 2022-11-15 15:21 | P.PCN ---
Date of Procedure: 11/15/22 Procedure(s) Performed: PROCEDURES: 1- spinal cord stimulator permanent leads implant under fluoroscopic guidance X2 lead (Fluoroscopy images stored on file in radiology department ) (CPT code= 79145 ) X2 2-spinal cord stimulator generator implant CPT code 00190 3- complex programing of the spinal cord stimulator. PREOPERATIVE DIAGNOSIS: 1-thoracic spondylosis with Thoracic facet arthropathy without myelopathy. 2-Thoracic degenerative disc disease. 3-morbid obesity POSTOPERATIVE DIAGNOSIS: 1-same as preoperative diagnoses. ANESTHESIA: Monitored anesthesia care as per anesthesia department BLOOD LOSS: Minimal. COMPLICATIONS: None. PROCEDURE INDICATIONS: The patient with a history of severe intractable upper and mid back pain who failed more conservative treatment measures. Patient had multiple pain interventions procedure and she got short-term benefit from it, sabine sanderson was a candidate for spinal cord stimulator and she had the psychological testing done and showed that there is no contraindication for the spinal cord stimulator, patient is not interested in having any spine surgery, she had the spinal cord stimulator trial done a few weeks ago and he had excellent pain relief and he is here today to have the permanent implant of spinal cord stimulator generator and IPG ,and lead placement PROCEDURE DESCRIPTION: The patient was seen and identified in the preoperative area. Risks, benefits, complications, and alternatives were discussed with the patient. The patient agreed to proceed with the procedure and signed the consent. IV was started.Patient was taken to the operating room and time out was performed.. The Thoracic and lumbar areas were prepped with Druaprep x2 and draped in the usual sterile fashion. Using sterile gowns and gloves, and after covering the fluoroscopic camera with a sterile drape, the procedure was proceeded on with. The fluoroscopic camera was placed in the AP position, and the T12-L1 interlaminar space was identified and localized in the left paramedian trajectory with 0.5% ropivacaine. Under fluoroscopic guidance, a 14 gauge Tuohy epidural needle from the [employer] spinal cord stimulator kit was guided into the interlaminar space. Then using the right oblique fluoroscopy, anterior-posterior fluoroscopy, and lvcb-[id number]-[id number] technique, the epidural space was accessed. The first lead (8 contacts leads from [employer] ) was passed and noted to be in the dorsal portion of the epidural space in the lateral view. Then using anterior-posterior view, the first lead was passed up to the top of T5 vertebra. Subsequently, a second 14 gauge Tuohy epidural needle was inserted just posterior to the first needle and was advanced toward the epidural space in a parallel direction to the first needle. Then using lateral fluoroscopy, anterior-posterior fluoroscopy, and llew-di-[id number] technique, the epidural space was accessed by the second needle into the same interlaminar space as the first needle. Then a second similar lead was passed and noted to be in the dorsal portion of the epidural space in the lateral view. Then using anterior- posterior view, the second lead was passed up to the top of T 5 vertebra, and was left in a parallel position to the first lead. Subsequently, the leads were tested and they gave good stimulation on the low back area and the lower extremity , then after that the needle was removed and both legs secured using 2-0 silk, and then the dressing applied durind the procedure ,we performed complex programing of the spinal cord stimulator ,we changed pulse width ,amplitude and the frequencey of the stimulation and we got good coverage for the painful area ,the parasthesia overlaped the painfull area ,patients was satesfied withe the stimulation ,we got more than 80 % decrease in the pain level Then after that both leads secured with anchor to the supraspinous ligament, and then a decision made to create a pocket for the spinal cord stimulator generator [employer], then after that both leads connected to the pulse generator, and then adequete hemostasis obtained, then after that the incisions closed using 2-0 Vicryl and 3-0 Vicryl, and then the dressing applied She will be taking antibiotic Levaquin 750 mg daily for 7 days and didn't will be seen in the pain clinic in one week COMPLICATIONS: No acute complications. COMMENTS: Each lead used had 8 contacts with a total of 16 contacts used. DISPOSITION / PLANS: The patient was placed in a supine position and transferred to the recovery area in a stable condition for observation. There was no evidence of lower extremity motor or sensory deficit after the procedure. Patient was discharged from the recovery room after meeting discharge criteria. Home discharge instructions were given to the patient by the staff. The patient was reexamined prior to discharge. Patient will follow up in the pain clinic next week for reevaluation and discussion about the results and possibility of moving forward with a permanent implant
[2022-11-15 15:37] VITALS: RESP 18
[2022-11-15] MEDS ORDERED: HYDROcodone/APAP 10-325MG 1 EACH TAB ONE (16:16)
[2022-11-15] MEDS ORDERED: ONDANSETRON 4 MG/2 ML VIAL ONE (16:16)
[2022-11-15 16:26] VITALS: BP 117/67; PULSE 79
--- NOTE | 2022-11-15 16:39 | FL ---
Intraoperative/procedural fluoroscopic services were provided. Total fluoroscopy time is 5 minutes 42 seconds with a total of 12 submitted images to PACS. Please see the operative/procedural note for f urther details. DAP: [phone] mGym2
== END 2022-11-15 16:54 | disposition home or self-care (01) ==
LOC: OR 10:15
PROVIDERS: ATTEND Specialist
DX: M47.24 Other spondylosis with radiculopathy, thoracic region (principal); M51.14 Intervertebral disc disorders with radiculopathy, thoracic region; F41.9 Anxiety disorder, unspecified; F32.A Depression, unspecified; Z68.41 Body mass index [BMI] 40.0-44.9, adult; E66.01 Morbid (severe) obesity due to excess calories; Z88.1 Allergy status to other antibiotic agents; Z88.2 Allergy status to sulfonamides; Z88.8 Allergy status to other drugs, medicaments and biological substances; Z79.899 Other long term (current) drug therapy
CPT/HCPCS: 63685; 63650; J1100; J2405; J0690

== ENCOUNTER → 2022-11-22 | Outpatient (CLI) | payer OTHER ==
[2022-11-22 11:12] VITALS: BP 131/87; PULSE 86; RESP 18; TEMP 98.4
--- NOTE | 2022-11-22 12:18 | P.PN ---
Progress Note - Text Progress Note Date: 11/22/22 This is follow-up visit for this 89 years old male with a history of severe and chronic upper and mid and low back pain, is diagnosed with thoracic degenerative disc disease and thoracic spondylosis with thoracic facet arthropathy, last week we have done a permanent implant of spinal cord stimulator and patient here today to have spinal cord stimulator programming and to check on his incision, the location of the IPG checked and it looked good there is no sign of infection no erythema and no discharge, and no swelling, patient denies any fever or night sweats and there is no focal neurological deficit, and after we checked on the incision related complex programming of the spinal cord stimulator, by changing the pulse width amplitude and the frequency of the stimulation, and I was able to overlap the paresthesia with the painful area, and patient gets more than 80% coverage of his pain, and he was very satisfied with the result of the stimulation, and patient will follow up in the pain clinic in 2-3 weeks for reevaluation
== END ==
LOC: PNWHC3 07:58
PROVIDERS: ATTEND Specialist
DX: M51.34 Other intervertebral disc degeneration, thoracic region (principal); M47.814 Spondylosis without myelopathy or radiculopathy, thoracic region; G89.29 Other chronic pain; Z88.2 Allergy status to sulfonamides; Z88.1 Allergy status to other antibiotic agents; Z88.5 Allergy status to narcotic agent
CPT/HCPCS: 99211